=== PATIENT | male | born 1995 | race Caucasian/White ===

== ENCOUNTER 2017-10-26 16:33 | Emergency (ER) | payer OTHER ==
[~2017-10-26] VITALS: Ht 188 cm; Wt 89.2 kg
[2017-10-26 16:34] VITALS: BP 135/78
[2017-10-26] MEDS ORDERED: IBUPROFEN 200 MG TABLET ONE (16:56)
[2017-10-26] MEDS ORDERED: IBUPROFEN 200 MG TABLET PO ONE (17:00)
== END 2017-10-26 17:50 | disposition home or self-care (01) ==
LOC: ED 17:05
DX: S62.344A Nondisplaced fracture of base of fourth metacarpal bone, right hand, initial encounter for closed fracture (principal); S62.346A Nondisplaced fracture of base of fifth metacarpal bone, right hand, initial encounter for closed fracture; G89.11 Acute pain due to trauma; W01.0XXA Fall on same level from slipping, tripping and stumbling without subsequent striking against object, initial encounter; Y93.01 Activity, walking, marching and hiking; Y92.89 Other specified places as the place of occurrence of the external cause; Y99.8 Other external cause status
CPT/HCPCS: 29125; 99284